=== PATIENT | female | born 1990 | race Caucasian/White ===

== ENCOUNTER 2020-07-08 19:58 | Emergency (ER) | payer OTHER, SELFPAY ==
--- NOTE | ~2020-07-08 | XR_ITS ---
EXAMINATION: XR lumbar spine 2-3V DATE: 07/08/2020 20:49 INDICATION: Low back pain TECHNIQUE: Anteroposterior and lateral views of the lumbar spine, and cone-down lateral view of the l umbosacral junction were obtained. COMPARISON: None. FINDINGS: There is no fracture, dislocation, or subluxation. The vertebral body heights, alignment, a nd intervertebral disc spaces are normal. The paravertebral soft tissues are unremarkable. IMPRESSION: 1. No acute osseous abnormality. Reviewed, dictated and finalized at location A. [facility]
[2020-07-08 20:00] VITALS: BP 127/72; PULSE 93; RESP 14; TEMP 37.1; O2SAT 96
[2020-07-08] MEDS: diazePAM (*CRX) 5 MG TABLET PO (20:45)
[2020-07-08] MEDS: KETOROLAC (*BKC) 60 MG/2 ML VIAL IM (20:45)
--- NOTE | 2020-07-08 22:10 | ED.BACK ---
HPI - Back Pain/Injury General Chief Complaint: Back Pain/Injury Stated Complaint: Lower back pain Time Seen by Provider: 07/08/20 20:24 History of Present Illness HPI Narrative: Patient is a 29-year-old female who presents ER with low back pain beginning tonight. 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 Feels like muscle spasms she has had before. Pain is worse when she bears weight on her left leg. Also worse to touch. She tried taking Flexeril and then came here. No saddle anesthesia or difficulty with going to restroom. No lower extremity numbness or tingling. Related Data Allergies Allergy/AdvReac Type Severity Reaction Status Date / Time No Known Allergies Allergy Unknown Verified 07/08/20 20:35 Review of Systems Musculoskeletal: Musculoskeletal: Reports back pain, Denies arthralgias and Denies muscle cramps Neurologic: Denies focal weakness and Denies numbness PMFSH Past Medical History Medical History (Updated 07/09/20 @ 02:05 by Jarvis Bailey MD) Healthy female adult Surgical History Surgical History (Updated 07/09/20 @ 02:05 by Jarvis Bailey MD) No history of previous surgery Social History Social History (Updated 07/09/20 @ 02:05 by Jarvis Bailey MD) Smoking status: Never smoker Exam Narrative: Exam Narrative: GENERAL: Well-appearing, well-nourished, and in no acute distress. HEAD: Normocephalic, atraumatic. EXTREMITIES: Normal range of motion. Full strength. Back: No midline tenderness of the thoracic or lumbar spine. There is paraspinal muscle tenderness about L3 left side with palpable spasm of muscle as well. NEURO: Alert and oriented x3. PSYCH: Normal mood and affect. Course Course Emergency Course: GERD ongoing for discomfort here. Discharge with additional anti-inflammatories muscle relaxers. 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 Vital Signs Vital signs: Vital Signs Temperature 98.7 F 07/08/20 20:00 Pulse Rate 93 07/08/20 20:00 Respiratory Rate 14 07/08/20 20:00 Blood Pressure 127/72 07/08/20 20:00 Pulse Oximetry 96 07/08/20 20:00 Temperature 98.5 F 07/08/20 22:26 Pulse Rate 65 07/08/20 22:26 Respiratory Rate 16 07/08/20 22:26 Blood Pressure 105/59 L 07/08/20 22:26 Pulse Oximetry 100 07/08/20 22:26 MDM - Back Pain/Injury Imaging Data Radiologist's impression: ITS Impressions Lumbar Spine X-Ray 07/08/20 20:52 IMPRESSION: 1. No acute osseous abnormality. Discharge Plan Discharge Clinical Impression: Muscle spasm of back Patient Disposition: Home, Self-Care Condition: Stable Instructions: Acute Low Back Pain (ED), Muscle Spasm (ED), Lower Back Exercises (ED) Additional Instructions: Return to the ER if you have increased pain in your back, you develop lower extremity weakness/numbness/paralysis, you have numbness or tingling in your private parts, or you are unable to control your ability to urinate/stool. Prescriptions: New cyclobenzaprine 10 mg tablet 10 mg PO TID PRN (Reason: muscle spasm) Qty: 15 RF: 0 naproxen 500 mg tablet 500 mg PO BID Qty: 20 RF: 0 Follow-up/Referrals: PHYSICIAN,RETAIL ANALYTICS MANAGER [Primary Care Provider] - Francisco Self MD [Physician] - 1 Week Stand Alone Forms: Work/School Release IP
[2020-07-08 22:26] VITALS: BP 105/59; PULSE 65; RESP 16; TEMP 36.9; O2SAT 100
== END 2020-07-08 22:27 | disposition home or self-care (01) ==
PROVIDERS: Emergency Provider Emergency Medicine
DX: M62.830 Muscle spasm of back (principal)
CPT/HCPCS: 72100; 96372; 99283; A9270; J1885

== ENCOUNTER 2024-01-31 14:05 | Outpatient (CLI) | payer BC, SELFPAY ==
--- NOTE | ~2024-01-31 | XR_ITS ---
EXAM: XR sacroiliac joints min 3V DATE: 01/31/2024 14:24 HISTORY: M25.9 - Joint disorder, unspecified . COMPARISON: None available. FINDINGS: Normal mineralization. No fracture or dislocation. No lytic or blastic lesion. Degenerativ e change the pubic symphysis. Normal SI joints and bilateral hip joints. Partial sacralization of L5 on the right. No erosion or periosteal change. Soft tissues within normal limits. IMPRESSION: Partial sacralization of L5 on the right. Osteitis pubis. Reviewed, dictated and finalized at location K.
== END 2024-01-31 14:06 ==
PROVIDERS: PCP Family Medicine; Visit Provider Family Medicine
DX: M25.9 Joint disorder, unspecified (principal)
CPT/HCPCS: 72202

== ENCOUNTER 2024-02-04 08:03 | Outpatient (CLI) | payer BC, SELFPAY ==
--- NOTE | ~2024-02-04 | MR_ITS ---
MRI of the lumbar spine Clinical History: Back pain Technique: Axial T2-weighted images, and sagittal T1-weighted, T2-weighted, and T2 fat-sat images wer e acquired. Findings: There is no fracture or subluxation of the lumbar spine. Vertebral bodies maintain normal h eight and line. No bone marrow signal reality seen. At L1-L2, L2-L3, L3-L4, intervertebral discs maintain normal signal and position. No disc bulge or he rniation T cells. There is mild facet arthropathy levels. No spinal canal stenosis or neural foramina l narrowing at these levels. At L4-L5, there is disc desiccation with mild disc narrowing and left foraminal disc bulge. There is moderate facet arthropathy. No central canal stenosis. There is moderate to advanced left neural fora sara narrowing. Right neural foramen preserved. At L5-S1, there is no disc bulge or herniation. There is moderate facet arthropathy. No central canal stenosis or neural foraminal narrowing. Paravertebral soft tissues are unremarkable. Impression: Degenerative change with left neural foraminal narrowing at L4-L5, as detailed above. Reviewed, dictated and finalized at [facility]. Impression: Degenerative change with left neural foraminal narrowing at L4-L5, as detailed above.
== END 2024-02-04 08:04 ==
LOC: GOSHIMG 08:05
PROVIDERS: PCP Family Medicine; Visit Provider Family Medicine
DX: M54.50 Low back pain, unspecified (principal)
CPT/HCPCS: 72148

== ENCOUNTER 2025-03-28 13:48 | Emergency (ER) | payer SELFPAY ==
--- NOTE | ~2025-03-28 | XR_ITS ---
EXAMINATION: XR chest 1V portable 03/28/2025 15:22 INDICATION: Chest pain TECHNIQUE:A single portable AP upright frontal image of the chest was obtained. COMPARISON: None available FINDINGS: The lungs are clear. The cardiomediastinal silhouette is within normal limits. There are no pleural effusions. There is no pneumothorax suspected. IMPRESSION: 1: NO ACUTE CARDIOPULMONARY DISEASE. Reviewed, dictated and finalized at location Q.
[2025-03-28 13:49] VITALS: BP 160/97; PULSE 81; RESP 16; TEMP 36.4; O2SAT 99
--- NOTE | 2025-03-28 13:55 | ECG_ITS ---
Test Date: 2025-03-28 14:05:04 Measurements Intervals [place] Rate: 79 P: 24 [place]: 142 QRS: 73 QRSD: 88 T: 42 QT: 390 QTc: 448 Interpretive Statements SINUS RHYTHM WITH SINUS ARRHYTHMIA NORMAL ECG No previous ECG available for comparison Electronically Signed On 03-28-2025 14:40:10 CDT by Idris Caro D.O.
--- OUTSIDE RECORDS SUMMARY | 2025-03-28 13:55 | XMS_ITS | Clinical Summary ---
Author Organization [facility] Address [address] [place] [address] Phone Care Team Providers Care Pain Management Nurse Name Role Phone Unavailable Primary Care Provider Unavailabl e Allergies No known active allergies Medications FLUoxetine (PROZAC) 10 MG Capsule Take 1 Cap by mouth daily. 90 Cap 07/12/2019 Active hydrOXYzine (ATARAX) 10 MG Tablet Take 1 Tab by mouth every 6 hours as needed for Anxiety. 30 Tab 07/12/2019 Active Active Problems Problem Noted Date Diagnosed Date Anxiety 07/12/2019 Resolved Problems Problem Noted Date Diagnosed Date Resolved Date Cervicalgia 01/23/2019 07/12/2019 Paronychia of great toe of left foot 09/13/2017 07/12/2019 Pain of left great toe 09/13/201707/12 Immunizations Immunization Administration Dates Next Due Influenza Vaccine 04/25/2015 Influenza Vaccine, Quadrivalent, PF 05/07/2016 RHO(D) Immune Globulin- IV Or IM 03/23/2017 TDAP Vaccine 05/26/2017 Tuberculin Skin Test; Purifi ed Protein Derivative Solutiol 09/07/2017 Family History Medical History Relation Name Comments Schizophrenia Father No Known Problems Mother Diabetes Paternal Grandmother Relation Name Status Comments Father Alive Mother Alive Paternal Grandmother Social History Tobacco Use Types Packs/Day Years Used Date Smoking Tobacco: Never Smokeless Tobacco: Never Tobacco Cessation:Counseling Given: Yes Alcohol Use Standard Drinks/Week Comments No 0 (1 standard drink = 0.6 oz pur e alcohol) PHQ-2 Answer Date Recorded PHQ-2 Score 0 04/18/2019 Sexually Active Control Partners Comments Yes Male Condom Male Comments No Sex and Gender Information Value Date Recorded Sex Assigned at Not on file Legal Sex Female 10:54 AM JANITOR CLEANER Gender Identity Not on file Sexual Orientation Not on file Last Filed Vital Signs Vital Sign Reading Time Taken Comments Blood Pressure 110/68 07/12/2019 1:02 PM JANITOR CLEANER Pulse 66 07/12/2019 1:02 PM JANITOR CLEANER Temperature 37.5 C (99.5 F) 07/12/2019 1:02 PM JANITOR CLEANER Respiratory Rate 18 07/12/2019 1:02 PM JANITOR CLEANER Oxygen Saturation 98% 07/12/2019 1:02 PM JANITOR CLEANER Inhaled Oxygen Concentration - - Weight 61.1 kg (134 lb 12.8 oz) 07/12/2019 1:02 PM JANITOR CLEANER Height 163.8 cm (5' 4.5) 07/12/2019 1:02 PM JANITOR CLEANER Body Mass Index 22.78 07/12/2019 1:02 PM JANITOR CLEANER Plan of Treatment Health Maintenance Due Date Last Done Comments Hepatitis C Virus (HCV) Screening 1989 Hepatitis B Immunization (1 of 3 - 19+ 3-dose series) 2008 Pap Smear 2010 Human Papillomavirus (HPV) Immunization (1 - 3-dose SCDM series) 2016 Cervical Cancer Screening (CCS) 2019 HPV/Cotest 2019 SARS-COV-2 Immunization ( - 2023- season) 2024 Influenza Immunization (#1) 04/02/202501/2016, 04/25/2015 Td Immunization Every 10 Yea rs (Adults With 1 Tdap) 05/26/2027 05/26/2017 Respiratory Syncytial Virus (RSV) Immunization (Adult) (1 - 1-dose 75+ series) 2064 Meningococcal Immunization (ACWY) Aged Out No longer eligible b ased on patient's age to complete this topic Pneumococcal Immunization Combined Aged Out No longer eligible b ased on patient's age to complete this topic Rotavirus Immunization Aged Out No lo nger eligible based on patient's age to complete this topic
--- OUTSIDE RECORDS SUMMARY | 2025-03-28 14:35 | XMS_ITS | Encounter Summary ---
Author Organization [facility] Address [address] [place] [id number] Care Team Providers Care Journalism Intern Name Role Phone Samuel Cifuentes MD Primary Care Provider Encounter Details Date Type Department Care Team (Late st Contact Info) Description 06/05/2017 Abstract [place] [address] , Generic Conversion, Social History Tobacco Use Types Packs/Day Years Used Date Smoking Tobacco: Never Assessed Comments Unknown Sex and Gender Information Value Date Recorded Sex Assigned at Not on file Legal Sex Female 8:13 PM CDT Gender Identity Not on file Sexual Orientation Not on file documented as of this encounter Plan of Treatment Not on file documented as of this encounter Visit Diagnoses Not on filedocumented in this encounter Care Teams Journalism Intern Relationship Specialty Start Date End Date Samuel Cifuentes MD [address] [place] [id number] PCP - General 11/21/14 documented as of this encounter
--- OUTSIDE RECORDS SUMMARY | 2025-03-28 14:35 | XMS_ITS | Clinical Summary ---
Author Organization [facility] Address [address] [place] [address] Phone Care Team Providers Care Identification Officer Name Role Phone Unavailable Primary Care Provider [...] on file Legal Sex Female 10:54 AM ARTIFACTS CONSERVATOR Gender Identity Not on file Sexual Orientation Not on file Last Filed Vital Signs Vital Sign Reading Time Taken Comments Blood Pressure 110/68 07/12/2019 1:02 PM ARTIFACTS CONSERVATOR Pulse 66 07/12/2019 1:02 PM ARTIFACTS CONSERVATOR Temperature 37.5 C (99.5 F) 07/12/2019 1:02 PM ARTIFACTS CONSERVATOR Respiratory Rate 18 07/12/2019 1:02 PM ARTIFACTS CONSERVATOR Oxygen Saturation 98% 07/12/2019 1:02 PM ARTIFACTS CONSERVATOR Inhaled Oxygen Concentration - - Weight 61.1 kg (134 lb 12.8 oz) 07/12/2019 1:02 PM ARTIFACTS CONSERVATOR Height 163.8 cm (5' 4.5) 07/12/2019 1:02 PM ARTIFACTS CONSERVATOR Body Mass Index 22.78 07/12/2019 1:02 PM ARTIFACTS CONSERVATOR Plan of Treatment Health Maintenance Due Date [...]
--- OUTSIDE RECORDS SUMMARY | 2025-03-28 14:35 | XMS_ITS | Clinical Summary ---
Author Organization [facility] Address [address] [place] [id number] Care Team Providers Care Mix Technician Name Role Phone Samuel Cifuentes MD Primary Care Provider Social History Tobacco Use Types Packs/Day Years Used Date Smoking Tobacco: Never Assessed Comments Unknown Sex and Gender Information Value Date Recorded Sex Assigned at Not on file Legal Sex Female 8:13 PM CDT Gender Identity Not on file Sexual Orientation Not on file Plan of Treatment Health Maintenance Due Date Last Done Comments Cervical Cancer Screening Pa p Smear (Age 30 to 64) Every 3 Years 1989 Annual Physical 1992 Hepatitis C 2007 DTaP, Tdap and Td Vaccines ( 1 - Tdap) 2008 Hepatitis B Vaccines (1 of 3 - 19+ 3-dose series) 2008 HPV Vaccines (1 - 3-dose SCD M series) 2016 Cervical Cancer Screening Pa p with HPV Testing (Age 30 to 64) Every 5 Years 2019 Cervical Cancer Screening with HPV 2019 COVID-19 Vaccine (2023-2 5 season) 2024 Meningococcal B Vaccine Aged Out No l onger eligible based on patient's age to complete this topic Meningococcal Vaccine Aged Out No ruben jyothi eligible based on patient's age to complete this topic Pneumococcal Vaccine: Pediat rics (0 to 5 Years) and At-Risk Patients (6 to 49 Years) Aged Out No longer eligible b ased on patient's age to complete this topic RSV Immunizations Under 20 Months Aged Out No longer eligible based on patient's age to complete this topic Care Teams Mix Technician Relationship Specialty Start Date End Date Samuel Cifuentes MD [address] [place] [id number] PCP - General 11/21/14
[2025-03-28] MEDS: diazePAM INJ (*CRX) 10 MG/2 ML SYRINGE 5 MG IV PUSH (15:30)
[2025-03-28 15:36] VITALS: BP 115/85; PULSE 71; RESP 17; O2SAT 96
[2025-03-28 15:45] LABS: Hematocrit 42.5 % (37.0-47.0); Hemoglobin 14.9 g/dL (12.0-15.0); Immature Granulocyte Percent A 0.1 % (0-0.5); Lymphocytes Absolute Auto 2.69 K/mm3 (0.9-3.2); Mean Corpuscular HGB Conc 35.1 g/dl (32-36); Mean Corpuscular Hemoglobin 31.0 pg (26-34); Mean Corpuscular Volume 88.5 fl (80-100); Nucleated Red Blood Cells Absolute Auto 0.000 K/mm3 (0.0-0.012); Nucleated Red Blood Cells Perc 0.0 % (0.0-0.2); Platelet Count Result 251 k/mm3 (150-375); Red Blood Count 4.80 M/mm3 (4.2-5.4); White Blood Count 7.7 K/mm3 (4.5-10.0)
[2025-03-28 15:58] LABS: Alanine Aminotransferase 18 U/L (6-35); Albumin Level 4.5 g/dL (3.5-5.1); Alkaline Phosphatase 67 U/L (38-126); Anion Gap 10 mmol/L (4-12); Aspartate Amino Transferase 27 U/L (14-36); Bilirubin,Total 0.8 mg/dL (0.2-1.3); Blood Urea Nitrogen 17 mg/dL (7-17); Calcium 9.6 mg/dL (8.4-10.2); Carbon Dioxide 23 mmol/L (22-30); Chloride 106 mmol/L (98-107); Estimated CRCL calculation 68 ml/min; Estimated Glomerular Filt Rate > 60; Glucose 86 mg/dL (65-110); Potassium 3.8 mmol/L (3.4-5.0); Sodium 139 mmol/L (137-145); Total Protein 7.9 g/dL (6.3-8.2)
[2025-03-28 16:10] LABS: Troponin I < 0.012 ng/mL (0.000-0.034)
[2025-03-28 16:36] VITALS: BP 116/72; PULSE 72; RESP 16; O2SAT 99
--- NOTE | 2025-03-28 16:41 | PC.NURSE ---
Pt. states she feels more relaxed. No current CP or SOB. Pt. only c/o a headache.
[2025-03-28] MEDS: KETOROLAC 15 MG/ML VIAL (*BKC) IV PUSH (17:12)
--- NOTE | 2025-03-28 17:16 | ED_ITS ---
HPI - General Adult General Chief complaint: Chest Pain Stated complaint: anxiety vs chest pain Time Seen by Provider: 03/28/25 14:09 History of Present Illness HPI narrative: This is a 34-year-old female presenting for chest pain. Patient says she has been under a significant amount of stress at work over the last week. She has had increased anxiety. Patient states that she has been having tingling around her hands and face. She is having cramping in her hands. She is also describing a burning pain in the center of her chest that is nonradiating, comes and goes with no exacerbating alleviating factors. She is not short of breath. She denied any fever productive cough. Patient is tearful and crying during the interview. Related Data Allergies Allergy/AdvReac Type Severity Reaction Status Date / Time No Known Allergies Allergy Unknown Verified 03/28/25 13:49 [facility] Past Medical History Medical History Healthy female adult Surgical History Surgical History Tubal ligation status No history of previous surgery Family History Family History Other Diabetes mellitus Schizophrenia Social History Social History Smoking status: Never smoker Second hand tobacco smoke exposure: No Alcohol intake: current Alcohol use details: 2 drinks per month, miriam Substance use: current Substance use type: marijuana Last use: November 2022 Lack of Transportation: No Lack of Food: Never True Current Housing: I Have Housing Concerned About Future Housing: No Difficulty Paying Gas/Electric Bills: No Difficulty Paying for Meds: No Currently Unemployed: No Education: High School Diploma/GED Difficulty w/ Childcare or Family Care: No Living arrangements: with family Occupation/Education: occupation Gender identity (if verbalized by the patient): Female Spiritual care concerns: No Agree to blood products: Yes Exam 2 Narrative: APPEARANCE: Tearful and crying Head: atraumatic. EYES: EOMI, NOSE: Atraumatic NECK: Trachea midline RESPIRATORY: No increased rate of breathing clear to auscultation CARDIOVASCULAR: RRR, no peripheral edema ABDOMINAL: Non-distended soft nontender MUSCULOSKELETAl: No obvious deformities NEURO: Alert. Cranial nerves 2-12 grossly intact. Moving for 4 extremities SKIN:: Warm, dry. Normal color PSYCHIATRIC: Anxious appearing, wringing her hands Course Vital Signs Vital signs: Vital Signs Temperature 97.6 F 03/28/25 13:49 Pulse Rate 81 03/28/25 13:49 Respiratory Rate 16 03/28/25 13:49 Blood Pressure 160/97 H 03/28/25 13:49 Pulse Oximetry 99 03/28/25 13:49 Temperature 97.6 F 03/28/25 13:49 Pulse Rate 72 03/28/25 16:36 Respiratory Rate 16 03/28/25 16:36 Blood Pressure 116/72 03/28/25 16:36 Pulse Oximetry 99 03/28/25 16:36 Oxygen Delivery Room Air 03/28/25 15:36 Medical Decision Making MDM Narrative Medical decision making narrative: -Course: 34-year-old female presenting with increasing anxiety associated with chest pain. Patient is tearful and crying during the interview. She was given Valium for anxiety. Her chest pain workup was negative including 2 troponins and 2 EKGs. She is PERC negative. Pain is atypical and is noncardiac. Suspect this is due to increased stress. Patient be discharged follow-up with her primary care physician for further management. During her stay the patient developed a frontal sinus headache. She has a sick child at home with URI symptoms and she believes that she is catching them. Initially she refused pain medication but then requested some Toradol. This was provided. -DDX includes but is not limited to: Stress reaction, anxiety, URI, ACS, PE, pneumonia, pneumothorax Vital Signs Vital Signs: Vital Signs Temperature 97.6 F 03/28/25 13:49 Pulse Rate 81 03/28/25 13:49 Respiratory Rate 16 03/28/25 13:49 Blood Pressure 160/97 H 03/28/25 13:49 Pulse Oximetry 99 03/28/25 13:49 Temperature 97.6 F 03/28/25 13:49 Pulse Rate 72 03/28/25 16:36 Respiratory Rate 16 03/28/25 16:36 Blood Pressure 116/72 03/28/25 16:36 Pulse Oximetry 99 03/28/25 16:36 Oxygen Delivery Room Air 03/28/25 15:36 Lab Data 03/28/25 15:37 03/28/25 15:38 Labs: Lab Results 03/28/25 03/28/25 03/28/25 Range/Units 15:37 15:38 17:58 WBC 7.7 (4.5-10.0) K/mm3 RBC 4.80 (4.2-5.4) M/mm3 Hgb 14.9 (12.0-15.0) g/dL Hct 42.5 (37.0-47.0) % MCV 88.5 (80-100) fl MCH 31.0 (26-34) pg MCHC 35.1 (32-36) g/dl RDW 11.2 L (11.5-14.5) % Plt Count 251 (150-375) k/mm3 MPV 9.3 (7.4-10.4) fl Immature Gran % (Auto) 0.1 (0-0.5) % Neut % (Auto) 54.1 (45.5-73.1) % Lymph % (Auto) 35.1 (18.3-44.2) % [place] % (Auto) 7.0 (2.6-8.5) % Eos % (Auto) 3.0 (0-4.4) % Baso % (Auto) 0.7 (0.2-1.2) % Lymph # (Auto) 2.69 (0.9-3.2) K/mm3 [place] # (Auto) 0.5 (0.1-0.6) K/mm3 Eos # (Auto) 0.2 (0-0.3) K/mm3 Baso # (Auto) 0.1 (0.0-0.1) K/mm3 Abs Immat Gran (auto) 0.01 (0.00-0.031) K/mm3 Absolute Neuts (auto) 4.2 (1.3-6.7) K/mm3 Absolute Nucleated RBC 0.000 (0.0-0.012) K/mm3 Nucleated RBC % 0.0 (0.0-0.2) % Sodium 139 (137-145) mmol/L Potassium 3.8 (3.4-5.0) mmol/L Chloride 106 (98-107) mmol/L Carbon Dioxide 23 (22-30) mmol/L Anion Gap 10 (4-12) mmol/L BUN 17 (7-17) mg/dL Creatinine 0.91 (0.7-1.0) mg/dL Estim Creat Clear Calc 68 ml/min Estimated GFR > 60 (59 - ) Glucose 86 (65-110) mg/dL Calcium 9.6 (8.4-10.2) mg/dL Total Bilirubin 0.8 (0.2-1.3) mg/dL AST 27 (14-36) U/L ALT 18 (6-35) U/L Alkaline Phosphatase 67 (38-126) U/L Troponin I < 0.012 Pending (0.000-0.034) ng/mL Total Protein 7.9 (6.3-8.2) g/dL Albumin 4.5 (3.5-5.1) g/dL Discharge Plan Discharge Clinical Impression: Atypical chest pain, Stress reaction Patient Disposition: Home Condition: Stable Instructions: Antibiotic Form, Chest Pain (DC), Stress (ED) Additional Instructions: You were seen emergency department for chest pain. Your chest pain workup was negative. You appear to be very anxious. Please follow-up with your primary care physician for further management. If you develop any new or worsening symptoms such as chest pain difficulty breathing or thoughts of harming herself or others please return to the ED for re-evaluation. Patient Language: Panamanian Prescriptions: No Action dextroamphetamine-amphetamine [Adderall] 10 mg tablet 10 mg PO QAM Qty: 30 0RF dextroamphetamine-amphetamine [Adderall] 5 mg tablet 5 mg PO BID Qty: 60 0RF Rx Instructions: administer doses at least 4-6 hours apart Follow-up/Referrals: Kamila Hargrove MD [Primary Care Provider, Family Practice] - 1 Week
--- NOTE | 2025-03-28 17:54 | ECG_ITS ---
Test Date: 2025-03-28 18:04:02 Measurements Intervals [place] Rate: 63 P: 67 SC: 171 QRS: 76 QRSD: 87 T: 56 QT: 425 QTc: 438 Interpretive Statements SINUS RHYTHM WITH FREQUENT VENTRICULAR PREMATURE COMPLEXES BASELINE ARTIFACT- I, II, III, AVR, AVL, AVF ABNORMAL ECG Compared to ECG 03/28/2025 14:05:04 Ventricular premature complex(es) now present Electronically Signed On 03-28-2025 18:48:38 CDT by Idris Caro D.O.
--- NOTE | 2025-03-28 18:09 | PC.NURSE ---
Pt. continues to state that her CP is gone. Headache is down to a 3/10. Pt. states I feel better. I'm ready to go home. Dr. Raymond notified.
[2025-03-28 18:29] LABS: Troponin I < 0.012 ng/mL (0.000-0.034)
[2025-03-28 19:34] VITALS: BP 120/85; PULSE 93; RESP 16; O2SAT 96
== END 2025-03-28 19:36 | disposition home or self-care (01) ==
PROVIDERS: Emergency Provider Emergency Medicine; PCP Family Medicine
DX: R07.89 Other chest pain (principal); F43.9 Reaction to severe stress, unspecified; I49.3 Ventricular premature depolarization
CPT/HCPCS: 36415; 71045; 80053; 84484; 85025; 93005; 96374; 96375; 99284; J1885; J3360